=== PATIENT | female | born 1990 | race Caucasian/White ===

== ENCOUNTER 2017-09-24 11:20 | Inpatient (IN) | payer OTHER ==
[2017-09-24] MEDS: LACTATED RINGER'S 1,000 ML IV (12:54)
[2017-09-24] MEDS ORDERED: ROPIVACAINE 0.5 % 30 ML VIAL (14:11)
[2017-09-24] MEDS ORDERED: FENTAnyl 50 MCG/ML VIAL (14:11)
[2017-09-24] MEDS ORDERED: MIDAZOLAM 1 MG/ML 2 ML INJ (14:11)
[2017-09-24] MEDS ORDERED: CEFAZOLIN 1 GM INJ IV (15:00)
[2017-09-24] MEDS ORDERED: CEFAZOLIN 1 GM/50 ML (PMX) 50 ML IVPB (15:00)
[2017-09-24] MEDS ORDERED: ONDANSETRON 4 MG INJ IV ×2 (15:00→16:30)
[2017-09-24] MEDS ORDERED: PROPOFOL 20 ML (15:04)
[2017-09-24] MEDS ORDERED: ROCURONIUM 50 MG INJ ×2 (15:04→16:22)
[2017-09-24] MEDS ORDERED: MEPERIDINE 100 MG INJ (15:24)
[2017-09-24] MEDS ORDERED: ACETAMINOPHEN 1000MG/100ML IV 100 ML (15:37)
[2017-09-24] MEDS ORDERED: CEFAZOLIN 1 GM INJ ×2 (15:41→20:43)
[2017-09-24] MEDS ORDERED: PHENYLephrine (100 MCG/ML) 5ML SYG (15:56)
[2017-09-24] MEDS ORDERED: ONDANSETRON 4 MG INJ (16:07)
[2017-09-24] MEDS ORDERED: METOCLOPRAMIDE 10 MG INJ (16:07)
[2017-09-24] MEDS ORDERED: HYDROmorphONE 1 MG/5 ML IV SYRINGE IV ×3 (16:30)
[2017-09-24] MEDS ORDERED: MEPERIDINE 25 MG INJ IV (16:30)
[2017-09-24] MEDS ORDERED: DIPHENHYDRAMINE 50 MG INJ IV (16:30)
[2017-09-24] MEDS ORDERED: OXYCODONE/ACETAMINOPHEN (5/325) TAB PO ×2 (16:30)
[2017-09-24] MEDS: HEPARIN 1000 UNITS/ML 10 ML INJ (17:25)
[2017-09-24] MEDS: POLYMYXIN/BACITRACIN 1L IRRIG ×2 (17:25→18:45)
[2017-09-24] MEDS: ROPIVACAINE 0.5 % 30 ML VIAL (17:26)
[2017-09-24] MEDS ORDERED: HYDROmorphONE 2 MG/ML SYG ×2 (17:28→19:33)
[2017-09-24] MEDS ORDERED: SCOPOLAMINE 1.5 MG PATCH (17:39)
[2017-09-24] MEDS ORDERED: METOPROLOL 5 MG INJ (17:52)
[2017-09-24] MEDS ORDERED: BACITRACIN 0.9 GM OINT (20:22)
[2017-09-24] MEDS ORDERED: NEOMYC/POLYMYX/BACIT 30 GM OINT (20:39)
[2017-09-24] MEDS: oxyCODONE 5 MG TAB PO (22:04)
[2017-09-25] MEDS: LORAZEPAM 1 MG TAB PO ×3 (00:13→18:46)
[2017-09-25] MEDS: CEPHALEXIN 500 MG CAP PO ×4 (00:13→17:36)
[2017-09-25] MEDS: oxyCODONE 5 MG TAB PO ×6 (01:47→22:03)
[2017-09-25 05:55] LABS: ADD MAN DIFF? NO
[2017-09-25 06:01] LABS: WHITE BLOOD COUNT 8.8 10^3/ul (4.8-10.8)
[2017-09-25 06:01] LABS: BASOPHILS % 0.2 % (0.0-2.0); HEMATOCRIT 34.3 % (37.0-47.0); HEMOGLOBIN 10.9 g/dl (12.0-16.0); LYMPHOCYTES # 0.9 10^3/ul (0.8-2.9); LYMPHOCYTES % 10.1 % (15.0-51.0); MEAN CORPUSCULAR HEMOGLOBIN 27.2 pg (29.0-33.0); MEAN CORPUSCULAR HGB CONC 31.8 g/dl (32.0-37.0); MEAN CORPUSCULAR VOLUME 85.5 fl (82.0-101.0); MONOCYTE # 0.9 10^3/ul (0.3-0.9); MONOCYTES % 10.7 % (0.0-11.0); NEUTROPHIL # 6.9 10^3/ul (1.6-7.5); NEUTROPHILS % 78.7 % (39.0-77.0); PLATELET COUNT 255 10^3/UL (140-415); RED BLOOD COUNT 4.01 10^6/ul (4.20-5.40); RED CELL DISTRIBUTION WIDTH 14.3 % (11.5-14.5)
[2017-09-25 07:38] LABS: ANION GAP 12 (8-16); BLOOD UREA NITROGEN 8 mg/dl (7-20); CALCIUM 8.7 mg/dl (8.4-10.2); CARBON DIOXIDE 25 mmol/L (21-31); CHLORIDE 106 mmol/L (97-110); CREATININE 0.54 mg/dl (0.44-1.00); GLUCOSE 111 mg/dl (70-220); POTASSIUM 4.4 mmol/L (3.5-5.1); SODIUM 139 mmol/L (135-144)
[2017-09-25] MEDS: HYDROCODONE/APAP (7.5/325) TAB PO ×2 (11:50→17:36)
[2017-09-25] MEDS: KETOROLAC 30 MG INJ IM (11:52)
[2017-09-25] MEDS: DOCUSATE SODIUM 100 MG CAP PO ×2 (12:03→20:19)
[2017-09-25] MEDS: RIVAROXABAN 10 MG TABLET PO (17:36)
[2017-09-25] MEDS: CYCLOBENZAPRINE 10 MG TAB PO (20:19)
[2017-09-25] MEDS: PREGABALIN 75 MG CAP PO (20:24)
[2017-09-26] MEDS: CEPHALEXIN 500 MG CAP PO ×4 (00:28→18:13)
[2017-09-26] MEDS: oxyCODONE 5 MG TAB PO ×3 (01:54→10:00)
[2017-09-26] MEDS: LORAZEPAM 1 MG TAB PO ×2 (03:00→13:56)
[2017-09-26] MEDS: CYCLOBENZAPRINE 10 MG TAB PO ×3 (04:14→21:18)
[2017-09-26] MEDS: DOCUSATE SODIUM 100 MG CAP PO ×2 (08:37→20:03)
[2017-09-26] MEDS: PREGABALIN 75 MG CAP PO ×2 (08:37→20:03)
[2017-09-26] MEDS: HYDROmorphONE 1 MG/ML SYG IV ×5 (11:58→23:57)
[2017-09-26] MEDS: HYDROCODONE/APAP (7.5/325) TAB PO ×2 (13:54→20:03)
[2017-09-26] MEDS: RIVAROXABAN 10 MG TABLET PO (18:13)
[2017-09-27] MEDS: LORAZEPAM 1 MG TAB PO (01:47)
[2017-09-27] MEDS: HYDROCODONE/APAP (7.5/325) TAB PO ×4 (01:47→20:13)
[2017-09-27] MEDS: HYDROmorphONE 1 MG/ML SYG IV ×7 (03:02→21:23)
[2017-09-27] MEDS: DIPHENHYDRAMINE 25 MG CAP PO ×2 (03:53→21:30)
[2017-09-27 05:49] LABS: HEMOGLOBIN A1C 5.2 % (0-5.9)
[2017-09-27 06:00] LABS: CHOLESTEROL 119 mg/dl (100-200)
[2017-09-27 06:00] LABS: CHOL/HDL RATIO 4.9 RATIO; HDL CHOLESTEROL 24 mg/dl (33-83); LDL CHOLESTEROL,CALCULATED 65 mg/dl; TRIGLYCERIDES 148 mg/dl (0-149)
[2017-09-27] MEDS: CYCLOBENZAPRINE 10 MG TAB PO ×3 (06:48→23:40)
[2017-09-27] MEDS: PREGABALIN 75 MG CAP PO ×2 (07:58→20:13)
[2017-09-27] MEDS: DOCUSATE SODIUM 100 MG CAP PO ×2 (07:58→20:12)
[2017-09-27] MEDS: LORAZEPAM 0.5 MG TAB PO (13:18)
[2017-09-27] MEDS: RIVAROXABAN 10 MG TABLET PO (17:59)
[2017-09-28] MEDS: HYDROmorphONE 1 MG/ML SYG IV ×7 (00:14→21:58)
[2017-09-28] MEDS: HYDROCODONE/APAP (7.5/325) TAB PO ×4 (02:10→20:35)
[2017-09-28] MEDS: LORAZEPAM 0.5 MG TAB PO ×2 (02:10→14:23)
[2017-09-28] MEDS: DIPHENHYDRAMINE 25 MG CAP PO ×2 (04:04→21:58)
[2017-09-28 05:51] LABS: ADD MAN DIFF? NO
[2017-09-28 05:59] LABS: BASOPHIL # 0.1 10^3/ul (0.0-0.1); BASOPHILS % 0.7 % (0.0-2.0); EOSINOPHILS # 0.2 10^3/ul (0.0-0.5); EOSINOPHILS % 2.6 % (0.0-7.0); HEMATOCRIT 34.4 % (37.0-47.0); HEMOGLOBIN 10.8 g/dl (12.0-16.0); LYMPHOCYTES # 1.9 10^3/ul (0.8-2.9); LYMPHOCYTES % 25.9 % (15.0-51.0); MEAN CORPUSCULAR HGB CONC 31.4 g/dl (32.0-37.0); MEAN PLATELET VOLUME 10.2 fl (7.4-10.4); MONOCYTES % 13.2 % (0.0-11.0); NEUTROPHIL # 4.3 10^3/ul (1.6-7.5); NEUTROPHILS % 56.9 % (39.0-77.0); PLATELET COUNT 267 10^3/UL (140-415); RED CELL DISTRIBUTION WIDTH 14.2 % (11.5-14.5)
[2017-09-28 05:59] LABS: WHITE BLOOD COUNT 7.5 10^3/ul (4.8-10.8)
[2017-09-28 06:51] LABS: ANION GAP 14 (8-16); BLOOD UREA NITROGEN 13 mg/dl (7-20); CARBON DIOXIDE 23 mmol/L (21-31); CHLORIDE 107 mmol/L (97-110); CREATININE 0.47 mg/dl (0.44-1.00); GLUCOSE 90 mg/dl (70-220); MAGNESIUM 1.9 mg/dl (1.7-2.5); POTASSIUM 4.7 mmol/L (3.5-5.1); SODIUM 139 mmol/L (135-144)
[2017-09-28] MEDS: DOCUSATE SODIUM 100 MG CAP PO ×2 (08:30→20:07)
[2017-09-28] MEDS: PREGABALIN 75 MG CAP PO ×2 (08:30→20:07)
[2017-09-28] MEDS: MINERAL OIL 30ML CUP PO (14:50)
[2017-09-28] MEDS: POLYETHYLENE GLYCOL 17 GM PACKET PO (14:50)
[2017-09-28] MEDS: RIVAROXABAN 10 MG TABLET PO (17:31)
[2017-09-28] MEDS: CYCLOBENZAPRINE 10 MG TAB PO (20:07)
[2017-09-28] MEDS: MAGNESIUM CITRATE 300 ML BTL PO (23:50)
[2017-09-29] MEDS: LACTULOSE 30ML CUP PO ×3 (01:04→22:17)
[2017-09-29] MEDS: HYDROmorphONE 1 MG/ML SYG IV ×7 (01:05→22:17)
[2017-09-29] MEDS: HYDROCODONE/APAP (7.5/325) TAB PO ×4 (02:33→20:55)
[2017-09-29] MEDS: LORAZEPAM 0.5 MG TAB PO ×2 (02:34→10:11)
[2017-09-29] MEDS: DIPHENHYDRAMINE 25 MG CAP PO (05:45)
[2017-09-29] MEDS: DOCUSATE SODIUM 100 MG CAP PO ×2 (09:00→20:55)
[2017-09-29] MEDS: PREGABALIN 75 MG CAP PO ×2 (10:04→20:56)
[2017-09-29] MEDS: BISACODYL (EC) 5 MG TAB PO (16:10)
[2017-09-29] MEDS: HYDROmorphONE 2 MG/ML SYG IV (16:10)
[2017-09-29] MEDS: RIVAROXABAN 10 MG TABLET PO (18:51)
[2017-09-29] MEDS: NA PHOSPHATE/BIPHOS 133 ML ENEMA PR (20:56)
[2017-09-29] MEDS: CYCLOBENZAPRINE 10 MG TAB PO (23:20)
[2017-09-30] MEDS: DIPHENHYDRAMINE 25 MG CAP PO ×4 (01:16→20:16)
[2017-09-30] MEDS: HYDROmorphONE 1 MG/ML SYG IV ×8 (01:16→23:35)
[2017-09-30] MEDS: HYDROCODONE/APAP (7.5/325) TAB PO ×4 (02:56→21:06)
[2017-09-30] MEDS: LORAZEPAM 0.5 MG TAB PO ×2 (02:57→15:03)
[2017-09-30] MEDS: LACTULOSE 30ML CUP PO (04:15)
[2017-09-30] MEDS: DOCUSATE SODIUM 100 MG CAP PO ×2 (08:10→20:17)
[2017-09-30] MEDS: PREGABALIN 75 MG CAP PO ×2 (08:10→20:15)
[2017-09-30] MEDS: BISACODYL (EC) 5 MG TAB PO (09:00)
[2017-09-30] MEDS: RIVAROXABAN 10 MG TABLET PO (17:01)
[2017-09-30] MEDS: CYCLOBENZAPRINE 10 MG TAB PO (21:12)
[2017-10-01] MEDS: DIPHENHYDRAMINE 25 MG CAP PO ×3 (00:58→18:20)
[2017-10-01] MEDS: LORAZEPAM 0.5 MG TAB PO ×2 (00:58→18:00)
[2017-10-01] MEDS: HYDROmorphONE 1 MG/ML SYG IV ×5 (05:59→18:53)
[2017-10-01] MEDS: HYDROCODONE/APAP (7.5/325) TAB PO ×2 (06:52→11:10)
[2017-10-01] MEDS: PREGABALIN 75 MG CAP PO ×2 (08:43→21:09)
[2017-10-01] MEDS: BISACODYL (EC) 5 MG TAB PO (08:45)
[2017-10-01] MEDS: DOCUSATE SODIUM 100 MG CAP PO (08:45)
[2017-10-01] MEDS: POLYETHYLENE GLYCOL 17 GM PACKET PO (10:30)
[2017-10-01] MEDS: METOPROLOL 25 MG TAB PO (11:31)
[2017-10-01 11:53] LABS: D-DIMER 2330.43 ng/ml (<460)
[2017-10-01] MEDS: RIVAROXABAN 10 MG TABLET PO (18:00)
[2017-10-01] MEDS: HYDROCODONE/APAP (10/325) TAB PO ×2 (18:01→23:03)
[2017-10-01] MEDS: ERGOCALCIFEROL 50,000 UNIT CAP PO (21:12)
[2017-10-01] MEDS: CYCLOBENZAPRINE 10 MG TAB PO (21:18)
[2017-10-01] MEDS: SOD CHLORIDE 0.9% 100 ML (22:54)
[2017-10-01] MEDS: IOHEXOL 300MG/ML 150 ML BTL (22:54)
[2017-10-02] MEDS: IOHEXOL 350MG/ML 50 ML BTL (00:26)
[2017-10-02] MEDS: SOD CHLORIDE 0.9% 100 ML (00:27)
[2017-10-02] MEDS: IOHEXOL 100 ML (00:27)
[2017-10-02] MEDS: HYDROCODONE/APAP (10/325) TAB PO ×5 (03:40→20:42)
[2017-10-02] MEDS: LORAZEPAM 0.5 MG TAB PO ×2 (05:21→20:41)
[2017-10-02] MEDS: BISACODYL (EC) 5 MG TAB PO (07:35)
[2017-10-02] MEDS: PREGABALIN 75 MG CAP PO ×2 (07:43→20:08)
[2017-10-02] MEDS: CYCLOBENZAPRINE 10 MG TAB PO ×2 (07:43→19:35)
[2017-10-02] MEDS: METOPROLOL 25 MG TAB PO (07:45)
[2017-10-02] MEDS: POLYETHYLENE GLYCOL 17 GM PACKET PO (07:48)
[2017-10-02] MEDS: DOCUSATE SODIUM 250 MG CAP PO (07:55)
[2017-10-02 08:03] LABS: ADD MAN DIFF? NO
[2017-10-02 08:04] LABS: BASOPHILS % 0.3 % (0.0-2.0); EOSINOPHILS # 0.2 10^3/ul (0.0-0.5); EOSINOPHILS % 2.9 % (0.0-7.0); HEMATOCRIT 33.9 % (37.0-47.0); HEMOGLOBIN 10.7 g/dl (12.0-16.0); IMMATURE GRANS #M 0.06 10^3/ul; IMMATURE GRANS % (M) 0.8 %; LYMPHOCYTES # 1.7 10^3/ul (0.8-2.9); LYMPHOCYTES % 22.2 % (15.0-51.0); MEAN CORPUSCULAR HEMOGLOBIN 26.7 pg (29.0-33.0); MEAN CORPUSCULAR HGB CONC 31.6 g/dl (32.0-37.0); MEAN CORPUSCULAR VOLUME 84.5 fl (82.0-101.0); MEAN PLATELET VOLUME 9.6 fl (7.4-10.4); MONOCYTE # 0.7 10^3/ul (0.3-0.9); MONOCYTES % 9.3 % (0.0-11.0); NEUTROPHIL # 4.8 10^3/ul (1.6-7.5); NEUTROPHILS % 64.5 % (39.0-77.0); PLATELET COUNT 338 10^3/UL (140-415); RED BLOOD COUNT 4.01 10^6/ul (4.20-5.40); RED CELL DISTRIBUTION WIDTH 14.6 % (11.5-14.5)
[2017-10-02 08:04] LABS: WHITE BLOOD COUNT 7.5 10^3/ul (4.8-10.8)
[2017-10-02 08:25] LABS: ALANINE AMINOTRANSFERASE 79 IU/L (13-69); ALBUMIN 3.4 g/dl (3.3-4.9); ALBUMIN/GLOBULIN RATIO 1.13; ALKALINE PHOSPHATASE 83 IU/L (42-121); ANION GAP 14 (8-16); ASPARTATE AMINO TRANSFERASE 73 IU/L (15-46); BLOOD UREA NITROGEN 17 mg/dl (7-20); CARBON DIOXIDE 25 mmol/L (21-31); CHLORIDE 106 mmol/L (97-110); CREATININE 0.43 mg/dl (0.44-1.00); GLUCOSE 85 mg/dl (70-220); POTASSIUM 4.5 mmol/L (3.5-5.1); SODIUM 140 mmol/L (135-144); TOTAL PROTEIN 6.4 g/dl (6.1-8.1)
[2017-10-02] MEDS: RIVAROXABAN 10 MG TABLET PO (17:33)
[2017-10-03] MEDS: HYDROCODONE/APAP (10/325) TAB PO ×6 (00:50→22:00)
[2017-10-03 05:40] LABS: TROPONIN-I < 0.010 ng/ml (0.000-0.120)
[2017-10-03] MEDS: DIPHENHYDRAMINE 25 MG CAP PO ×3 (06:03→15:52)
[2017-10-03] MEDS: CYCLOBENZAPRINE 10 MG TAB PO ×2 (07:40→15:52)
[2017-10-03] MEDS: POLYETHYLENE GLYCOL 17 GM PACKET PO (09:00)
[2017-10-03] MEDS: BISACODYL (EC) 5 MG TAB PO (09:00)
[2017-10-03] MEDS: DOCUSATE SODIUM 250 MG CAP PO (09:00)
[2017-10-03] MEDS: METOPROLOL 25 MG TAB PO (09:14)
[2017-10-03] MEDS: PREGABALIN 75 MG CAP PO ×2 (09:14→22:01)
[2017-10-03] MEDS: LORAZEPAM 0.5 MG TAB PO ×2 (09:14→22:01)
[2017-10-03] MEDS: ENOXAPARIN 40 MG/0.4 ML SYG SC (09:16)
[2017-10-04] MEDS: DIPHENHYDRAMINE 25 MG CAP PO ×5 (05:28→21:03)
[2017-10-04] MEDS: HYDROCODONE/APAP (10/325) TAB PO ×5 (05:28→21:03)
[2017-10-04] MEDS: CYCLOBENZAPRINE 10 MG TAB PO ×3 (06:35→22:27)
[2017-10-04] MEDS: PREGABALIN 75 MG CAP PO ×2 (08:57→20:56)
[2017-10-04] MEDS: DOCUSATE SODIUM 250 MG CAP PO ×2 (09:00→12:00)
[2017-10-04] MEDS: BISACODYL (EC) 5 MG TAB PO ×2 (09:00→12:00)
[2017-10-04] MEDS: LORAZEPAM 0.5 MG TAB PO ×2 (09:00→20:56)
[2017-10-04] MEDS: METOPROLOL 25 MG TAB PO (09:00)
[2017-10-04] MEDS: POLYETHYLENE GLYCOL 17 GM PACKET PO ×2 (09:00→12:00)
[2017-10-04] MEDS: ENOXAPARIN 40 MG/0.4 ML SYG SC (09:04)
[2017-10-04] MEDS ORDERED: BISACODYL 10 MG SUPP PR (17:30)
[2017-10-04] MEDS: MAGNESIUM HYDROXIDE 30ML CUP PO (19:00)
[2017-10-05] MEDS: DIPHENHYDRAMINE 25 MG CAP PO ×6 (01:18→21:03)
[2017-10-05] MEDS: HYDROCODONE/APAP (10/325) TAB PO ×6 (01:18→21:03)
[2017-10-05] MEDS: CYCLOBENZAPRINE 10 MG TAB PO ×2 (06:07→14:55)
[2017-10-05] MEDS: POLYETHYLENE GLYCOL 17 GM PACKET PO (09:00)
[2017-10-05] MEDS: BISACODYL (EC) 5 MG TAB PO (09:00)
[2017-10-05] MEDS: PREGABALIN 75 MG CAP PO ×2 (09:03→21:03)
[2017-10-05] MEDS: METOPROLOL 25 MG TAB PO (09:03)
[2017-10-05] MEDS: DOCUSATE SODIUM 250 MG CAP PO (09:03)
[2017-10-05] MEDS: ENOXAPARIN 40 MG/0.4 ML SYG SC (09:08)
[2017-10-05] MEDS: LORAZEPAM 0.5 MG TAB PO ×2 (10:30→22:25)
[2017-10-06] MEDS: CYCLOBENZAPRINE 10 MG TAB PO ×2 (00:14→11:17)
[2017-10-06] MEDS: DIPHENHYDRAMINE 25 MG CAP PO ×6 (01:08→21:21)
[2017-10-06] MEDS: HYDROCODONE/APAP (10/325) TAB PO ×6 (01:08→21:28)
[2017-10-06] MEDS: METOPROLOL 25 MG TAB PO (08:35)
[2017-10-06] MEDS: DOCUSATE SODIUM 250 MG CAP PO (08:35)
[2017-10-06] MEDS: POLYETHYLENE GLYCOL 17 GM PACKET PO (08:36)
[2017-10-06] MEDS: PREGABALIN 75 MG CAP PO ×2 (08:36→21:22)
[2017-10-06] MEDS: BISACODYL (EC) 5 MG TAB PO (08:36)
[2017-10-06] MEDS: ENOXAPARIN 40 MG/0.4 ML SYG SC (08:42)
[2017-10-06] MEDS: LORAZEPAM 0.5 MG TAB PO ×2 (10:03→22:29)
[2017-10-06 13:11] LABS: HEPATITIS B SURFACE ANTIGEN NEGATIVE (NEGATIVE)
[2017-10-06 13:29] LABS: HEPATITIS C VIRAL ANTIBODY NEGATIVE (NEGATIVE)
[2017-10-07] MEDS: HYDROCODONE/APAP (10/325) TAB PO ×6 (02:50→23:10)
[2017-10-07] MEDS: CYCLOBENZAPRINE 10 MG TAB PO ×3 (04:23→20:31)
[2017-10-07] MEDS: DIPHENHYDRAMINE 25 MG CAP PO ×5 (06:59→23:07)
[2017-10-07] MEDS: BISACODYL (EC) 5 MG TAB PO (08:57)
[2017-10-07] MEDS: DOCUSATE SODIUM 250 MG CAP PO (08:59)
[2017-10-07] MEDS: PREGABALIN 75 MG CAP PO ×2 (08:59→20:32)
[2017-10-07] MEDS: METOPROLOL 25 MG TAB PO (09:01)
[2017-10-07] MEDS: POLYETHYLENE GLYCOL 17 GM PACKET PO (09:01)
[2017-10-07] MEDS: ENOXAPARIN 40 MG/0.4 ML SYG SC (09:02)
[2017-10-07] MEDS: LORAZEPAM 0.5 MG TAB PO ×2 (10:31→22:00)
[2017-10-08] MEDS: DIPHENHYDRAMINE 25 MG CAP PO ×5 (03:11→20:32)
[2017-10-08] MEDS: HYDROCODONE/APAP (10/325) TAB PO ×3 (03:11→10:42)
[2017-10-08] MEDS: PREGABALIN 75 MG CAP PO ×2 (08:44→20:32)
[2017-10-08] MEDS: BISACODYL (EC) 5 MG TAB PO (08:44)
[2017-10-08] MEDS: DOCUSATE SODIUM 250 MG CAP PO (08:44)
[2017-10-08] MEDS: METOPROLOL 25 MG TAB PO (08:45)
[2017-10-08] MEDS: POLYETHYLENE GLYCOL 17 GM PACKET PO (08:47)
[2017-10-08] MEDS: CYCLOBENZAPRINE 10 MG TAB PO ×2 (08:47→20:32)
[2017-10-08] MEDS: ENOXAPARIN 40 MG/0.4 ML SYG SC (08:48)
[2017-10-08] MEDS: LORAZEPAM 0.5 MG TAB PO ×2 (10:15→22:48)
[2017-10-08] MEDS: OXYCODONE/ACETAMINOPHEN (10/325) TAB PO ×3 (13:05→22:47)
[2017-10-08] MEDS: LORAZEPAM 1 MG TAB PO (16:47)
[2017-10-08] MEDS ORDERED: CEPASTAT LOZENGE MT (20:30)
[2017-10-08] MEDS: clonAZEPAM 0.5 MG TAB PO (20:32)
[2017-10-09] MEDS: POLYETHYLENE GLYCOL 17 GM PACKET PO (08:08)
[2017-10-09] MEDS: DOCUSATE SODIUM 250 MG CAP PO (08:08)
[2017-10-09] MEDS: BISACODYL (EC) 5 MG TAB PO (08:09)
[2017-10-09] MEDS: PREGABALIN 75 MG CAP PO ×2 (08:09→21:02)
[2017-10-09] MEDS: clonAZEPAM 0.5 MG TAB PO ×2 (08:10→20:59)
[2017-10-09] MEDS: METOPROLOL 25 MG TAB PO (08:10)
[2017-10-09] MEDS: ENOXAPARIN 40 MG/0.4 ML SYG SC (08:14)
[2017-10-09] MEDS: LORAZEPAM 0.5 MG TAB PO (09:15)
[2017-10-09] MEDS: OXYCODONE/ACETAMINOPHEN (10/325) TAB PO (10:01)
[2017-10-09] MEDS ORDERED: ALBUTEROL 0.083% (NEB) 2.5 MG/3 ML AMP HHN (11:09)
[2017-10-09] MEDS: DIPHENHYDRAMINE 25 MG CAP PO (12:40)
[2017-10-09] MEDS: LEVALBUTEROL (NEB) 1.25 MG/0.5 ML AMP HHN (12:42)
[2017-10-09 13:37] LABS: ADD MAN DIFF? NO
[2017-10-09] MEDS: traMADol 50 MG TAB PO ×2 (13:37→19:04)
[2017-10-09 13:39] LABS: BASOPHIL # 0.1 10^3/ul (0.0-0.1); BASOPHILS % 0.5 % (0.0-2.0); EOSINOPHILS # 0.2 10^3/ul (0.0-0.5); EOSINOPHILS % 2.4 % (0.0-7.0); HEMATOCRIT 33.8 % (37.0-47.0); HEMOGLOBIN 10.5 g/dl (12.0-16.0); LYMPHOCYTES # 2.2 10^3/ul (0.8-2.9); LYMPHOCYTES % 23.4 % (15.0-51.0); MEAN CORPUSCULAR HEMOGLOBIN 26.7 pg (29.0-33.0); MEAN CORPUSCULAR HGB CONC 31.1 g/dl (32.0-37.0); MEAN PLATELET VOLUME 9.8 fl (7.4-10.4); MONOCYTE # 0.8 10^3/ul (0.3-0.9); MONOCYTES % 8.2 % (0.0-11.0); PLATELET COUNT 431 10^3/UL (140-415); RED BLOOD COUNT 3.93 10^6/ul (4.20-5.40); RED CELL DISTRIBUTION WIDTH 14.3 % (11.5-14.5)
[2017-10-09 13:39] LABS: WHITE BLOOD COUNT 9.3 10^3/ul (4.8-10.8)
[2017-10-09 13:57] LABS: ALANINE AMINOTRANSFERASE 58 IU/L (13-69); ALBUMIN 3.4 g/dl (3.3-4.9); ALBUMIN/GLOBULIN RATIO 1.13; ALKALINE PHOSPHATASE 85 IU/L (42-121); ANION GAP 12 (8-16); ASPARTATE AMINO TRANSFERASE 39 IU/L (15-46); BLOOD UREA NITROGEN 15 mg/dl (7-20); CALCIUM 8.8 mg/dl (8.4-10.2); CARBON DIOXIDE 26 mmol/L (21-31); CHLORIDE 105 mmol/L (97-110); CREATININE 0.53 mg/dl (0.44-1.00); GLUCOSE 92 mg/dl (70-220); MAGNESIUM 1.9 mg/dl (1.7-2.5); POTASSIUM 4.4 mmol/L (3.5-5.1); SODIUM 139 mmol/L (135-144); TOTAL PROTEIN 6.4 g/dl (6.1-8.1)
[2017-10-09 14:03] LABS: CK-MB < 0.22 ng/ml (0.0-2.4); TROPONIN-I < 0.010 ng/ml (0.000-0.120)
[2017-10-09 14:15] LABS: CREATINE KINASE 21 IU/L (23-200)
[2017-10-09] MEDS: CYCLOBENZAPRINE 10 MG TAB PO (15:15)
[2017-10-09] MEDS: SOD CHLORIDE 0.9% 500 ML IV (15:28)
[2017-10-09 15:42] LABS: FREE T4 (FREE THYROXINE) 0.77 ng/dl (0.79-2.35)
[2017-10-09 18:50] LABS: CREATINE KINASE 22 IU/L (23-200)
[2017-10-09 18:58] LABS: CK-MB < 0.22 ng/ml (0.0-2.4); TROPONIN-I < 0.010 ng/ml (0.000-0.120)
[2017-10-09] MEDS ORDERED: METOPROLOL 25 MG TAB PO (21:00)
[2017-10-09] MEDS: ATENOLOL 25 MG TAB PO (21:00)
[2017-10-09] MEDS: oxyCODONE (CR) 10 MG TAB [oxyCONTIN] PO (21:02)
[2017-10-09 22:41] LABS: CREATINE KINASE 20 IU/L (23-200)
[2017-10-09 22:55] LABS: CK INDEX 1.1; CK-MB < 0.22 ng/ml (0.0-2.4); TROPONIN-I < 0.010 ng/ml (0.000-0.120)
[2017-10-10] MEDS: traMADol 50 MG TAB PO ×4 (01:00→19:50)
[2017-10-10 01:11] LABS: CREATINE KINASE 20 IU/L (23-200)
[2017-10-10 01:23] LABS: CK INDEX 1.1; CK-MB < 0.22 ng/ml (0.0-2.4); TROPONIN-I < 0.010 ng/ml (0.000-0.120)
[2017-10-10 05:59] LABS: CK-MB < 0.22 ng/ml (0.0-2.4); TROPONIN-I < 0.010 ng/ml (0.000-0.120)
[2017-10-10 06:11] LABS: CREATINE KINASE < 20 IU/L (23-200)
[2017-10-10] MEDS: ATENOLOL 25 MG TAB PO ×2 (09:00→20:37)
[2017-10-10] MEDS: POLYETHYLENE GLYCOL 17 GM PACKET PO ×3 (09:27→13:03)
[2017-10-10] MEDS: DOCUSATE SODIUM 250 MG CAP PO (09:29)
[2017-10-10] MEDS: ENOXAPARIN 40 MG/0.4 ML SYG SC (09:29)
[2017-10-10] MEDS: BISACODYL (EC) 5 MG TAB PO (09:29)
[2017-10-10] MEDS: clonAZEPAM 0.5 MG TAB PO ×2 (09:30→20:34)
[2017-10-10] MEDS: oxyCODONE (CR) 10 MG TAB [oxyCONTIN] PO ×2 (09:30→20:32)
[2017-10-10] MEDS: PREGABALIN 75 MG CAP PO ×2 (09:30→20:32)
[2017-10-10] MEDS: CYCLOBENZAPRINE 10 MG TAB PO (14:41)
[2017-10-10] MEDS: DIPHENHYDRAMINE 25 MG CAP PO (15:55)
[2017-10-11] MEDS: DIPHENHYDRAMINE 25 MG CAP PO ×3 (01:14→17:50)
[2017-10-11] MEDS: traMADol 50 MG TAB PO ×5 (01:15→18:53)
[2017-10-11 06:27] LABS: T3 UPTAKE 33.3 % (23.5-40.5)
[2017-10-11 06:28] LABS: FREE THYROXINE INDEX (Calc) 2.06 ug/ml (0.65-3.89); T4 (THYROXINE) 6.2 ug/dl (5.5-11.0)
[2017-10-11] MEDS: oxyCODONE (CR) 10 MG TAB [oxyCONTIN] PO ×2 (08:12→20:37)
[2017-10-11] MEDS: PREGABALIN 75 MG CAP PO ×2 (08:13→20:37)
[2017-10-11] MEDS: BISACODYL (EC) 5 MG TAB PO (08:13)
[2017-10-11] MEDS: clonAZEPAM 0.5 MG TAB PO ×2 (08:13→20:37)
[2017-10-11] MEDS: DOCUSATE SODIUM 250 MG CAP PO (08:13)
[2017-10-11] MEDS: ATENOLOL 25 MG TAB PO ×2 (08:15→20:41)
[2017-10-11] MEDS: ENOXAPARIN 40 MG/0.4 ML SYG SC ×2 (08:16→09:48)
[2017-10-11] MEDS: POLYETHYLENE GLYCOL 17 GM PACKET PO (08:17)
[2017-10-11] MEDS: CYCLOBENZAPRINE 10 MG TAB PO ×2 (12:43→20:37)
[2017-10-11] MEDS: ACETAMINOPHEN 325 MG TAB PO (16:09)
[2017-10-12] MEDS: ACETAMINOPHEN 325 MG TAB PO ×2 (01:46→15:09)
[2017-10-12] MEDS: traMADol 50 MG TAB PO ×4 (01:46→18:48)
[2017-10-12] MEDS: DIPHENHYDRAMINE 25 MG CAP PO ×3 (01:46→21:54)
[2017-10-12] MEDS: oxyCODONE (CR) 10 MG TAB [oxyCONTIN] PO ×2 (07:39→21:53)
[2017-10-12] MEDS: PREGABALIN 75 MG CAP PO ×2 (07:40→21:53)
[2017-10-12] MEDS: clonAZEPAM 0.5 MG TAB PO ×2 (07:40→21:53)
[2017-10-12] MEDS: POLYETHYLENE GLYCOL 17 GM PACKET PO (07:47)
[2017-10-12] MEDS: ATENOLOL 25 MG TAB PO ×2 (07:48→21:53)
[2017-10-12] MEDS: CYCLOBENZAPRINE 10 MG TAB PO ×2 (07:48→15:09)
[2017-10-12] MEDS: BISACODYL (EC) 5 MG TAB PO (07:48)
[2017-10-12] MEDS: DOCUSATE SODIUM 250 MG CAP PO (07:48)
[2017-10-12] MEDS: ENOXAPARIN 40 MG/0.4 ML SYG SC (07:54)
[2017-10-12] MEDS: ALBUTEROL/IPRATROPIUM (NEB) 3 ML AMP HHN (08:43)
[2017-10-12] MEDS: IOHEXOL 100 ML (09:45)
[2017-10-12] MEDS: SOD CHLORIDE 0.9% 100 ML (09:45)
[2017-10-13] MEDS: CYCLOBENZAPRINE 10 MG TAB PO ×2 (00:51→09:50)
[2017-10-13] MEDS: traMADol 50 MG TAB PO ×3 (00:51→12:33)
[2017-10-13] MEDS: ALBUTEROL/IPRATROPIUM (NEB) 3 ML AMP HHN ×2 (02:03→09:17)
[2017-10-13] MEDS: DIPHENHYDRAMINE 25 MG CAP PO (07:06)
[2017-10-13] MEDS: clonAZEPAM 0.5 MG TAB PO (07:41)
[2017-10-13] MEDS: oxyCODONE (CR) 10 MG TAB [oxyCONTIN] PO (07:41)
[2017-10-13] MEDS: PREGABALIN 75 MG CAP PO (07:41)
[2017-10-13] MEDS: DOCUSATE SODIUM 250 MG CAP PO (07:43)
[2017-10-13] MEDS: BISACODYL (EC) 5 MG TAB PO (07:43)
[2017-10-13] MEDS: POLYETHYLENE GLYCOL 17 GM PACKET PO (07:44)
[2017-10-13] MEDS: ENOXAPARIN 40 MG/0.4 ML SYG SC (07:51)
[2017-10-13] MEDS: ACETAMINOPHEN 325 MG TAB PO (09:50)
[2017-10-13] MEDS: ATENOLOL 25 MG TAB PO (09:50)
== END 2017-10-13 14:59 | disposition home health service (06) | DRG 504 ==
LOC: SDS 11:20 → REC 14:43 → MS1 22:25
PROC: 0QSL04Z Reposition Right Tarsal with Internal Fixation Device, Open Approach (ICD-10-PCS; principal; 2017-09-24 13:00)
PROC: 0QB20ZZ Excision of Right Pelvic Bone, Open Approach (ICD-10-PCS; 2017-09-24 13:00)
PROC: 0QUL07Z Supplement Right Tarsal with Autologous Tissue Substitute, Open Approach (ICD-10-PCS; 2017-09-24 13:00)
PROC: 0L8N0ZZ Division of Right Lower Leg Tendon, Open Approach (ICD-10-PCS; 2017-09-24 13:00)
PROC: 07DR3ZZ Extraction of Iliac Bone Marrow, Percutaneous Approach (ICD-10-PCS; 2017-09-24 13:00)
DX: M84.671A Pathological fracture in other disease, right ankle, initial encounter for fracture (principal); Q74.3 Arthrogryposis multiplex congenita; F33.9 Major depressive disorder, recurrent, unspecified; M62.89 Other specified disorders of muscle; M89.8X7 Other specified disorders of bone, ankle and foot; E66.01 Morbid (severe) obesity due to excess calories; I95.9 Hypotension, unspecified; D50.9 Iron deficiency anemia, unspecified; E55.9 Vitamin D deficiency, unspecified; F90.9 Attention-deficit hyperactivity disorder, unspecified type; F41.1 Generalized anxiety disorder; F43.10 Post-traumatic stress disorder, unspecified; G47.33 Obstructive sleep apnea (adult) (pediatric); G89.29 Other chronic pain; J45.30 Mild persistent asthma, uncomplicated; K21.9 Gastro-esophageal reflux disease without esophagitis; R00.0 Tachycardia, unspecified; R06.83 Snoring; R07.89 Other chest pain; R94.5 Abnormal results of liver function studies; Z68.39 Body mass index [BMI] 39.0-39.9, adult; Z91.81 History of falling
CPT/HCPCS: 71045; 71275; 73610-RT; 73630; 74018; 80048; 80053; 80061; 82306; 82550; 82553; 83036; 83735; 84436; 84439; 84443; 84479; 84484; 85025; 85378; 86803; 87340; 93005; 93306; 93970; 93971; 94640; 94664; 97110; 97116; 97163; 97530; 99217